=== PATIENT | male | born 1955 | race Caucasian/White ===

== ENCOUNTER 2018-12-03 16:14 | Emergency (ER) | payer OTHER ==
[~2018-12-03] VITALS: Ht 172.7 cm; Wt 84.0 kg
[2018-12-03 16:33] VITALS: Ht 172.7 cm; Wt 84.0 kg
--- NOTE | 2018-12-03 17:26 | ERD ---
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 Cole, for palpitations and abnormal EKG. Dr. Cole actually called telling the charge nurse that the patient has a history of cancer and milena vular heart disease with a rapid irregular heart rate at the office up to 160 bpm. EKG was done but he converted to normal sinus rhythm prior to capturing the abnormalities. Patient states that he woke up at 3 AM today with rapid palpitations. This lasted for about 3 hours then somewhat improved. He continued to have palpitations but went to work today. He was sweating with his symptoms but he denies any chest pain or shortness of breath. No dizziness. He went to Dr. Cole to get evaluated. He was told to come immediately to the ER. Patient denies any history of arrhythmias or palpitations. Currently is denying any symptoms. ROS All systems reviewed and are negative except as per history of present illness. Allergies Allergies: Coded Allergies: No Known Allergy (Unverified , 12/03/18) PMhx/Soc History of Surgery: Yes (BILATERAL ORCHIECTOMY) Anesthesia Reaction: No Hx Neurological Disorder: No Hx Respiratory Disorders: No Hx Cardiac Disorders: Yes ( "heart murmur" since he was a child) Hx Psychiatric Problems: No Hx Miscellaneous Medical Probl: Yes (Liposarcoma) Hx Alcohol Use: No Hx Substance Use: No Hx Tobacco Use: No Smoking Status: Never smoker FmHx Family History: No diabetes Physical Exam Vitals Vital Signs Date Temp Pulse Resp B/P (MAP) Pulse Ox O2 O2 Flow FiO2 Time Delivery Rate 12/03/18 97.7 88 18 134/79 97 16:33 (97) Physical Exam Const: No acute distress Head: Atraumatic Eyes: Normal Conjunctiva ENT: Normal External Ears, Nose and Mouth. Neck: Full range of motion. No meningismus. Resp: Clear to auscultation bilaterally Cardio: Regular rate and rhythm, systolic murmur, best heard at the left upper sternal border. No gallops. 2+ distal pulses in all 4 extremities Abd: Soft, non tender, non distended. Normal bowel sounds Skin: No petechiae or rashes Back: No midline or flank tenderness Ext: No cyanosis, or edema Neur: Awake and alert, normal speech, no facial asymmetry, moving all extremities Psych: Normal Mood and Affect Result Diagram: 12/03/18 1725 12/03/18 1725 Results 24 hrs Laboratory Tests Test 12/03/18 17:25 White Blood Count 9.5 10^3/ul Red Blood Count 4.37 10^6/ul Hemoglobin 12.9 g/dl Hematocrit 38.7 % Mean Corpuscular Volume 88.6 fl Mean Corpuscular Hemoglobin 29.5 pg Mean Corpuscular Hemoglobin Concent 33.3 g/dl Red Cell Distribution Width 13.1 % Platelet Count 158 10^3/UL Mean Platelet Volume 10.4 fl Immature Granulocytes % 0.800 % Neutrophils % 70.7 % Lymphocytes % 15.9 % Monocytes % 9.3 % Eosinophils % 2.9 % Basophils % 0.4 % Nucleated Red Blood Cells % 0.0 /100WBC Immature Granulocytes # 0.080 10^3/ul Neutrophils # 6.7 10^3/ul Lymphocytes # 1.5 10^3/ul Monocytes # 0.9 10^3/ul Eosinophils # 0.3 10^3/ul Basophils # 0.0 10^3/ul Nucleated Red Blood Cells # 0.0 10^3/ul Sodium Level 144 mmol/L Potassium Level 4.0 mmol/L Chloride Level 110 mmol/L Carbon Dioxide Level 26 mmol/L Anion Gap 8 Blood Urea Nitrogen 20 mg/dl Creatinine 1.01 mg/dl Est Glomerular Filtrat Rate mL/min > 60 mL/min Glucose Level 91 mg/dl Calcium Level 9.4 mg/dl Troponin I 0.034 ng/ml Procedures/[facility] EMERGENT LABS AND DIAGNOSTIC STUDIES: Lab Results above were reviewed and interpreted by me. CBC: no anemia or evidence of infection BMP: No evidence of electrolyte abnormality, renal failure, hypoglycemia Troponin within normal limits, not indicative of cardiac ischemia 12-lead EKG was interpreted by Laura Vera MD: Normal sinus rhythm at 83 bpm Rightward axis Normal intervals T wave inversions with minimal ST depressions in the inferior and anterolateral leads No arrhythmia. No STEMI. Abnormal EKG. 12-lead EKG was interpreted by Laura Vera MD: Normal sinus rhythm at 72 bpm Rightward axis Normal intervals T wave inversions with minimal ST depressions in the inferior and anterolateral leads No arrhythmia. No STEMI. Abnormal EKG. Radiology Results as interpreted by Radiology below were reviewed by Richard Vera MD: Chest x-ray: Mild Cardiomegaly. Mild right lower lobe linear atelectasis. Initial Nursing notes reviewed. Previous Medical Records requested via the Electronic Health Record. EMERGENCY DEPARTMENT COURSE / MEDICAL DECISION MAKING: Patient is presenting with palpitations and reported pulse of 160 prior to arrival. Currently he is not having any evidence of arrhythmia. Vitals are unremarkable. However his EKG did show some abnormalities that were concerning for possible ischemia. Troponin was within normal limits. Labs did not show any significant abnormalities. I had an extensive discussion with the patient, his , and his daughter at bedside. I explained to them why I wanted to admit him for observation as he would need telemetry monitoring. However the patient and his refused to be admitted. I explained to them the murmur I heard on exam and abnormal EKG, which may indicate a heart problem. The patient has made the decision to leave this Emergency Department and any ongoing care against the advice of the emergency physician. The patient has been informed of and verbalized understanding of the inherent risks of this decision, including , disability . The patient explained to me the reason for wanting to sign out against medical advice which was he did not want to stay in the hospital and he would rather follow-up with his doctor. He is feeling much better now and does not think he needs to be admitted despite extensive explanation why he would need to be admitted. The patient was given alternative therapeutic options including follow-up with his PCP closely for heart monitor and outpatient cardiac workup. The patient has the capacity to make this decision and accepts the responsibility of leaving at this time. The patient and all necessary parties have been advised that the patient may return at any time for further evaluation or treatment. The patient's condition at time of discharge is stable. I spoke with Dr. Cole and I let him know that the patient signed out AMA Departure Diagnosis: Primary Impression: Palpitations TACHO VERA MD Dec 03, 2018 17:25
[2018-12-03 18:55] VITALS: BP 137/83; PULSE 80; RESP 19
[2018-12-03] MEDS ORDERED: TEST2.5G5 TD (19:02)
== END 2018-12-03 19:53 | disposition left against medical advice (07) ==
LOC: E/R 16:14
DX: R00.2 Palpitations (principal); Z85.89 Personal history of malignant neoplasm of other organs and systems
CPT/HCPCS: 36415; 71045; 80048; 84484; 85025; 93005